=== PATIENT | male | born 1980 | race African-American/Black ===

== ENCOUNTER 2020-05-08 22:14 | Emergency (ER) | payer OTHER ==
[~2020-05-08] VITALS: Ht 157.5 cm; Wt 99.8 kg
[2020-05-08 22:33] VITALS: BP_SYST 141
--- NOTE | 2020-05-08 22:35 | NUR ---
Patient to ER bed 06 to gown for evaluation. Side rails up. Report given to LUCAS Bernard
--- NOTE | 2020-05-08 22:36 | NUR ---
Patient brought in c/o of right sided headache since 1729. Pain 04/20. Reports taking ibuprofen 800 mg with no relief. No other complaints/injuries per patient or as noted. Will continue to monitor.
--- NOTE | 2020-05-08 22:37 | NUR ---
ER at bedside examining patient.
[2020-05-08] MEDS ORDERED: MORPHINE 2 MG/ML INJ. SYRINGE IVP ONE (22:45)
[2020-05-08] MEDS ORDERED: DIPHENHYDRAMINE INJ 50 MG/ML VIAL IVP ONE (22:45)
[2020-05-08] MEDS ORDERED: NACL 0.9% 1,000 ML IV ONE (22:45)
[2020-05-08] MEDS ORDERED: METOCLOPRAMIDE HCL 10 MG/2 ML VIAL IVP ONE (22:45)
--- NOTE | 2020-05-08 23:05 | NUR ---
Patient transported to radiology via WHEELCHAIR, accompanied by CODY.
[2020-05-08 23:30] LABS: CALCIUM 8.7 mg/dL (8.4-11.0); CREATININE 1.3 mg/dL (0.55-1.30); POTASSIUM 3.5 mmol/L (3.5-5.1)
[2020-05-08 23:32] LABS: BASOPHILS % (AUTO) 0.5 % (0.0-2.0); EOSINOPHILS % (AUTO) 0.4 % (0.0-4.0); HEMATOCRIT 41.9 % (36-54); HEMOGLOBIN 14.1 g/dL (14.0-18.0); LYMPHOCYTES # (AUTO) 2.2 K/uL (1.0-5.5); LYMPHOCYTES % (AUTO) 29.4 % (20.5-51.5); MEAN CORPUSCULAR HEMOGLOBIN 30 pg (27-31); MEAN CORPUSCULAR HGB CONC 34 % (32-36); MEAN CORPUSCULAR VOLUME 89 fL (79.0-98.0); MONOCYTES # (AUTO) 0.6 K/uL (0.0-1.0); NEUTROPHILS # (AUTO) 4.6 K/uL (1.8-7.7); NEUTROPHILS % (AUTO) 61.7 % (40.0-70.0); PLATELET COUNT (AUTO) 231 K/uL (130-430); RED BLOOD CELL COUNT(AUTO) 4.71 MIL/uL (4.2-6.2); RED CELL DISTRIBUTION WIDTH 13.4 % (9.0-15.0); WHITE BLOOD COUNT (AUTO) 7.5 K/uL (4.8-10.8)
[2020-05-08 23:35] LABS: ALBUMIN 3.8 g/dL (3.4-4.8); TOTAL BILIRUBIN 0.6 mg/dL (0.0-1.0)
[2020-05-08] MEDS ORDERED: MORPHINE 4 MG/ML INJ. SYRINGE IVP ONE (23:45)
--- NOTE | 2020-05-09 00:10 | NUR ---
Patient is still in pain, MD aware of pain.
--- NOTE | 2020-05-09 00:28 | NUR ---
Consent signed for Lumbar Puncture.
[2020-05-09] MEDS ORDERED: KETAMINE 30 MG/3 ML SYRINGE IVP ONE (01:15)
--- NOTE | 2020-05-09 02:10 | NUR ---
Consent signed for Lumbar Puncture. Time out performed with all staff involved just prior to procedure. Lumbar area cleansed with per physician. Physician numbed site with prior to placement. Patient tolerated procedure WELL.
--- NOTE | 2020-05-09 02:55 | NUR ---
Spoke to Patients for an update.
--- NOTE | 2020-05-09 03:04 | NUR ---
CTA consent form signed. PT allergic to all fish, aware.
--- NOTE | 2020-05-09 03:30 | NUR ---
PT RESTING SYMMETRIC CHEST RISE AND FALL. EASILY AROUSABLE.
--- NOTE | 2020-05-09 06:27 | NUR ---
Patient given written and verbal discharge instructions and verbalizes understanding. ER MD discussed with patient the results and treatment provided. Patient in stable condition. ID arm band removed. IV catheter removed intact and dressing applied, no active bleeding. Rx of motrin given. Patient educated on pain management and to follow up with PMD. Opportunity for questions provided and answered. Medication side effect fact sheet provided.
[2020-05-09 06:40] VITALS: BP_SYST 148
== END 2020-05-09 06:40 | disposition home or self-care (01) ==
LOC: SED 22:14
DX: R51 Headache (principal)
CPT/HCPCS: 36415; 62270; 70450; 70496; 80053; 85025; 96361; 96374; 96375 ×2; 96376; 99285; J1200; J2270 ×2; J2765; J7030; Q9967